=== PATIENT | male | born 1955 | race Caucasian/White ===

== ENCOUNTER 2019-08-18 18:18 | Emergency (ER) | payer BC ==
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
[2019-08-18] MEDS ORDERED: Bacitracin/Neomycin/Polymyxin B Oint 0.9 GM U/D Packet ONE (18:33)
[2019-08-18] MEDS ORDERED: Ibuprofen 200 MG Tab ONE (18:35)
== END 2019-08-18 19:00 | disposition home or self-care (01) ==
LOC: CC.ED 18:18
DX: S43.401A Unspecified sprain of right shoulder joint, initial encounter (principal); S50.311A Abrasion of right elbow, initial encounter; Y04.0XXA Assault by unarmed brawl or fight, initial encounter
CPT/HCPCS: 73030-RT; 99283-25

== ENCOUNTER 2022-10-07 07:52 | Emergency (ER) | payer MEDICARE, BC ==
[2022-10-07 07:57] VITALS: BP 108/54; PULSE 62
== END 2022-10-07 10:13 | disposition home or self-care (01) ==
LOC: CC.ED 07:52
DX: S83.91XA Sprain of unspecified site of right knee, initial encounter (principal)
CPT/HCPCS: 36415; 73564-RT; 80053; 84550; 85025; 99283